=== PATIENT | female | born 1960 | race Two or more races ===

== ENCOUNTER 2016-09-11 09:56 | Inpatient (IN) | payer BC ==
[~2016-09-11] VITALS: Ht 154.9 cm; Wt 92.5 kg
[2016-09-11 11:13] LABS: BASOPHIL % 0.3 % (0-2); PLATELET COUNT 299 x10^3mcL (130-400)
[2016-09-11 11:20] LABS: CARBON DIOXIDE 26.1 mmol/L (21-32); CHLORIDE SERUM 107 mmol/L (98-107); CREATININE SERUM 0.6 mg/dL (0.6-1.0); GFR1 > 60 mL/min; GLUCOSE SERUM 83 mg/dL (74-106); POTASSIUM SERUM 3.6 mmol/L (3.5-5.1); SODIUM SERUM 141 mmol/L (136-145)
[2016-09-11 11:26] LABS: ALBUMIN 3.5 g/dL (3.4-5.0); ALKALINE PHOSPHATASE 123 U/L (46-116); ALT/SGPT 32 U/L (14-59); AST/SGOT 19 U/L (15-37); BILIRUBIN TOTAL 0.3 mg/dL (0.20-1.00); LIPASE 142 IU/L (73-393); TOTAL PROTEIN, SERUM 7.3 g/dL (6.4-8.2); TRIGLYCERIDES 92 mg/dL (<150)
[2016-09-11 11:27] LABS: CHOLESTEROL 226 mg/dL (<200); CHOLESTEROL/HDL RATIO 3.4; HDL CHOLESTEROL 67 mg/dL (40-60)
[2016-09-11 11:45] LABS: T3 TOTAL 1.17 ng/mL
[2016-09-11 11:51] LABS: FREE T4 1.36 ng/dL (0.76-1.46); FREE THYROXINE INDEX 3.7 ug/dL (1.4-4.5); T4(THYROXINE) 10.9 ug/dL (4.7-13.3)
[2016-09-11 11:55] LABS: UA SPECIFIC GRAVITY >=1.030 (1.005-1.035); microscopic required? YES; urine erythrocyte 1+ (NEGATIVE)
[2016-09-11] MEDS ORDERED: LOSARTAN POTASS25 M1 PO (11:57)
[2016-09-11] MEDS ORDERED: SIMVASTATIN10 M1 PO (11:59)
[2016-09-11 14:01] VITALS: BP 159/77
[2016-09-11 17:45] VITALS: BP 132/64
[2016-09-11 21:21] VITALS: BP 121/61
[2016-09-12 05:45] VITALS: BP 114/59
[2016-09-12 08:35] LABS: BASOPHIL % 0.3 % (0-2); PLATELET COUNT 294 x10^3mcL (130-400); RED CELL DISTRIBUTION WIDTH 14.1 % (11.5-14.5)
[2016-09-12 08:45] LABS: CALCIUM 8.7 mg/dL (8.5-10.1); CARBON DIOXIDE 23.4 mmol/L (21-32); CHLORIDE SERUM 109 mmol/L (98-107); CREATININE SERUM 0.6 mg/dL (0.6-1.0); GFR1 > 60 mL/min; GLUCOSE SERUM 114 mg/dL (74-106); MAGNESIUM 1.9 mg/dL (1.8-2.4); PHOSPHOROUS 3.1 mg/dL (2.5-4.9); POTASSIUM SERUM 3.3 mmol/L (3.5-5.1); SODIUM SERUM 140 mmol/L (136-145)
[2016-09-12 09:19] VITALS: BP 123/63
[2016-09-12 09:48] LABS: AMPHETAMINE QUAL UR NONE DETECTED (NEG <=1000)
[2016-09-12 13:00] VITALS: BP 127/79
[2016-09-12 17:15] VITALS: BP 128/67
[2016-09-12 21:25] VITALS: BP 115/64
[2016-09-13 05:25] VITALS: BP 118/69
[2016-09-13 06:15] LABS: CALCIUM 8.6 mg/dL (8.5-10.1); CARBON DIOXIDE 25.3 mmol/L (21-32); CHLORIDE SERUM 111 mmol/L (98-107); CREATININE SERUM 0.6 mg/dL (0.6-1.0); GFR1 > 60 mL/min; GLUCOSE SERUM 87 mg/dL (74-106); POTASSIUM SERUM 4.5 mmol/L (3.5-5.1); SODIUM SERUM 146 mmol/L (136-145)
[2016-09-13 09:57] VITALS: BP 116/55
[2016-09-13 14:43] VITALS: BP 118/73
[2016-09-13 16:56] VITALS: BP 118/73
== END 2016-09-13 17:25 | disposition home or self-care (01) | DRG 205 ==
LOC: ED 09:56 → DU 12:39
PROVIDERS: Family Medicine; Specialist; ADMIT Family Medicine
DX: M94.0 Chondrocostal junction syndrome [Tietze] (principal); I50.43 Acute on chronic combined systolic (congestive) and diastolic (congestive) heart failure; I67.4 Hypertensive encephalopathy; K21.9 Gastro-esophageal reflux disease without esophagitis; E78.5 Hyperlipidemia, unspecified; I11.0 Hypertensive heart disease with heart failure; E87.6 Hypokalemia; E87.8 Other disorders of electrolyte and fluid balance, not elsewhere classified; E66.9 Obesity, unspecified; R23.3 Spontaneous ecchymoses; Z68.38 Body mass index [BMI] 38.0-38.9, adult; Z91.19 Patient's noncompliance with other medical treatment and regimen
CPT/HCPCS: 83880; 84439; J1940; J7030; Q0092